=== PATIENT | male | born 1940 | race African-American/Black ===

== ENCOUNTER → 2017-03-17 | Outpatient (CLI) | payer BC ==
[~2017-03-17] MED LIST: AMLODIPINE BESYL5 MG PO; ASPIRIN EC81 M1; ASPIRIN PO; ASPIRIN81 MG PO; ATENOLOL PO; CATAPRES-TTS-20.2 MG PO; COLCRYS0.6 M2 PO; FOLTX PO; IBUPROFEN800 MG PO; IMDUR-ER30 M1 PO; IMDUR30 MG PO; K-LOR HOSPITAL20 MEQ; KCL PO; LASIX PO; LIPITOR PO; LIPITOR20 MG; LIPITOR20 MG PO; LOSARTAN-HCTZ1 EACH; LOSARTAN-HCTZ1 EACH PO; MEDROL DOSEPAK4 MG DOB; METOPROLOL SUCC25 MG PO; METOPROLOL SUCC50 MG PO; MINOXIDIL PO; OXYGEN; PROAIR HFA8.5 GM INH; SERTRALINE HCL100 MG; SYMBICORT INH; TENORMIN50 MG; TYLENOL #3; ULORIC80 MG PO; ULTRAM PO; VITAL-D RX TABL1 TAB
--- NOTE | ~2017-03-17 | CT71 ---
[facility] A Service of [facility] RADIOLOGY TEXT RESULTS PATIENT: MERLE AKHTAR JR LOCATION: [facility] #: [id number] : 44 UNIT #: [id number] AGE: [address]: Bob Willson II, MD SEX: M ORDER DR: [id number] [facility]. [place], [place] [address] [id number] O MR#: [id number] Acc #: [id number] NAME: MERLE AKHTAR JR : 1940 SEX: M STUDY DATE/TIME: 03/17/2017 14:52 UNIT: [facility] ROOM: STUDY DESCRIPTION: CT Head Wo Contrast Attending Physician: Bob Willson II., M.D. Referring Physician: Bob Willson II., M.D. Ordering Physician: Bob Willson II., M.D. Primary Care Physician: Deepa Ashton M.D. MEDICAL IMAGING REPORT This report is preliminary unless electronic signature is present EXAM CT brain without IV contrast. DATE OF EXAM 03/17/2017 COMPARISON 06/02/2013 HISTORY SUPPLIED Chronic memory loss for 7 years. TECHNIQUE Axial imaging of the brain was performed without contrast media and compared directly to a prior study of 2012. This CT exam was performed with one or more of the following radiation dose reduction techniques: automatic exposure control, adjustment of mA and/or kV according to patient size, and iterative reconstruction. There is generalized prominence of the ventricles and CSF containing spaces and there are areas of decreased attenuation in the periventricular white matter. No mass lesions, mass effect, acute hemorrhage or edema. No intra or extraaxial fluid collections are identified. Bone windows are reviewed. There is atherosclerotic calcifications in the carotid siphons. Paranasal sinuses are clear. No lytic or blastic lesions are identified. CONCLUSION 1. Generalized atrophy. 2. 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 3. No acute intracranial findings are significant changes since the studies of 2013. [facility] A Service [facility] RADIOLOGY TEXT RESULTS PATIENT: MERLE AKHTAR JR [facility] #[facility] [id number] : 44 UNIT #: [id number] AGE: [address]: Bob Willson II, MD SEX: M ORDER DR: Dictated by... Sandeep Strauss M.D. THIS IS AN ELECTRONICALLY VERIFIED REPORT Sandeep Strauss M.D. at 03/20/2017 4:42 PM SHARAN/allegra TD: 03/17/2017 19:29 JOB #: [id number] MEDICAL IMAGING REPORT Page 1 of 1 COPY
== END | disposition home or self-care (01) ==
LOC: CCAT 14:17
DX: R41.3 Other amnesia (principal); G31.9 Degenerative disease of nervous system, unspecified; I67.82 Cerebral ischemia
CPT/HCPCS: 70450